=== PATIENT | female | born 1975 | race Caucasian/White ===

== ENCOUNTER 2025-01-15 17:46 | Outpatient (CLI) | payer SELFPAY | END 2025-01-15 17:47 | disposition home or self-care (01) | PROVIDERS: Visit Provider Physician Assistant | DX: S61.032A Puncture wound without foreign body of left thumb without damage to nail, initial encounter (principal); W46.1XXA Contact with contaminated hypodermic needle, initial encounter | CPT/HCPCS: 86703; 86706; 86803; 87340 ==

== ENCOUNTER 2025-02-22 08:20 | Outpatient (CLI) | payer SELFPAY | END 2025-02-22 08:21 | disposition home or self-care (01) | PROVIDERS: PCP Nurse Practitioner Family; Visit Provider Nurse Practitioner Family | DX: Z00.00 Encounter for general adult medical examination without abnormal findings (principal); R53.83 Other fatigue | CPT/HCPCS: 80053; 80061; 82728; 83540; 83550; 84443; 85025 ==